=== PATIENT | female | born 1935 | race Caucasian/White ===

== ENCOUNTER 2018-01-07 05:38 | Observation (INO) ==
[2018-01-07] MEDS ORDERED: Metoprolol Tartrate 25 MG Tablet PO ONE (06:03)
[2018-01-07] MEDS ORDERED: Chlorhexidine Gluconate 2% 1 Pack (2 Cloths) TOPICAL ONE (06:03)
[2018-01-07] MEDS ORDERED: Chlorhexidine 4% Topical 120 APPLIC/120 ML Bottle TOPICAL SCH (06:15)
[2018-01-07] MEDS ORDERED: Bupivacaine/Epinephrine Inj 0.25% 50 ML Vial ONE (06:57)
[2018-01-07] MEDS ORDERED: ceFAZolin 2 GM Premix Inj 2 GM/50 ML PIGGYBACK IV.SIG SCH (07:00)
[2018-01-07] MEDS ORDERED: Vancomycin Inj 1,000 MG in Sodium Chlor 0.9% Inj 250 ML IV.SIG SCH (07:00)
[2018-01-07] MEDS ORDERED: Sodium Chlor 0.9% Inj 500 ML IV.SIG SCH (07:00)
[2018-01-07] MEDS ORDERED: Lidocaine PF 1% Inj 5 ML Syringe INFILTRATN ONE (07:24)
[2018-01-07] MEDS ORDERED: Neostigmine Inj 5 MG/5 ML Syringe IV.PUSH ONE (07:24)
[2018-01-07] MEDS ORDERED: Glycopyrrolate Inj 1 MG/5 ML Syringe IV.PUSH ONE (07:24)
--- NOTE | 2018-01-07 12:26 | P.OP ---
- Preoperative Diagnosis (1) Spinal stenosis, cervical region Preoperative Diagnosis: Cervical spinal stenosis C3-4, C4-5, C5-6. Cervical radiculopathy. Cervical myelopathy. Degenerative disc disease, cervical spine. Herniated nucleus pulposus C4-5 and C5-6 Postoperative Diagnosis: Same Date of procedure: 01/07/18 Procedure: Anterior cervical discectomy and decompression with bilateral foraminotomies, C3 4. Anterior cervical discectomy decompression with bilateral foraminotomies, C4-5. Anterior cervical discectomy decompression and bilateral foraminotomies, C5-6. Left anterior iliac crest bone graft Surgeon: Timothy Story MD Sawyer Cork Slabs: NORRIS Philip Operation and Findings: EBL: 100 cc INDICATIONS: This patient is an 82-year-old female with significant myelopathic findings associated with above conditions. She is having loss of function and there is evidence of myelomalacia involving the upper cervical spinal cord. She presents for surgical treatment. NOTE: Quiana Philip PA-C was present for the entire surgical procedure as my certified surgical tech/first assistant. In my medical opinion her skill and care was necessary for proper management of this patient PROCEDURE: The patient was brought to the operating room and anesthetized in the supine position. This patient was positioned supine on the radiolucent table. All pressure points were protected in the anterior cervical spine and iliac crest was scrubbed with alcohol followed by Hibiclens followed by ChloraPrep. A timeout was done and antibiotics were given within 1 hour time window. Lateral radiographic images were used identifying the proper level. A left anterior incision was made along the line of the sternocleidomastoid medial border. The platysma was opened in line with the incision. Deep dissection continued in the interval between the carotid sheath and the esophagus. The longus-coli muscles were lifted on both sides and retractors were positioned allowing good exposure. Lateral radiographic images were used to identify the proper level. Everson style interosseous pins were placed at C3 and C4 allowing exposure to that level. The microscope was rolled into the field. A total discectomy was accomplished and posterior osteophytes were removed. The posterior longitudinal ligament and annulus was taken down. Bilateral foraminotomies were accomplished. The endplates were squared up anticipating later bone grafting. A blunt probe could be placed out each foramen without evidence of nerve root compromise. The C3 pin was placed down to C 5. An anterior exposure was accomplished. We performed a total discectomy with excision of the posterior annulus and posterior longitudinal ligament. Bilateral foraminotomies were accomplished. Osteophytes were removed. The endplates were squared up anticipating later bone grafting. A blunt probe could be placed out each foramen without evidence of nerve root compromise. The C4 pin was placed down to C6. An anterior exposure was accomplished. We performed a total discectomy with excision of the posterior annulus and posterior longitudinal ligament. Bilateral foraminotomies were accomplished. Osteophytes were removed. The endplates were squared up anticipating later bone grafting. A blunt probe could be placed out each foramen without evidence of nerve root compromise. The left iliac crest was approached. A small stab incision was made allowing percutaneous access to the anterior iliac crest. Multiple cores of cancellous bone were harvested and taken to the back table to be used for later bone grafting. The wound was irrigated anesthetized and closed with 4-0 Vicryl followed by Dermabond. The case was turned over to Dr. Luis Story for fusion and instrumentation per his dictation. FINDINGS: There was evidence of a significant osteophyte disc complex with significant ossification involving the posterior longitudinal ligament at the C3 -4 level. There was a large extruded central disc herniation at C4-5 and C5-6. The final decompression appeared to be very satisfactory. There was no complication that was appreciated. NOTE: This surgery was performed in 2 parts. The first part was the neurosurgical decompression performed under the variable power stereo microscope by the undersigned in addition to the bone graft. The second portion of the surgery will be performed by the orthopedic spine component by co -surgeon, Dr. Luis Story for the anterior fusion with interbody cage and anterior plate. The skill of 2 surgeons was necessary to perform distinct separate procedural services as dictated above and dictated in the following operative note by Dr. Luis Story.
[2018-01-07] MEDS ORDERED: Bisacodyl 10 MG Supp RECTAL PRN (12:36)
[2018-01-07] MEDS ORDERED: Morphine Inj 4 MG/ML Vial IV.PUSH PRN (12:36)
--- NOTE | 2018-01-07 12:45 | XR ---
EXAM DATE: 01/07/2018 12:00 AM EDT AGE/SEX: 82 years / Female INDICATIONS: Neck pain, anterior cervical fusion C3-4, C4-5, C5-6. CLINICAL DATA: This is the patient's initial encounter. Patient reports that signs and symptoms have been present for 1 day and indicates a pain score of Nonresponsive. MEDICAL/SURGICAL HISTORY: Non-responsive. Non-responsive. COMPARISON: No prior exams available for comparison. FINDINGS: The examination demonstrates a 4 level anterior cervical fusion this appears to extend from C3 down t o C6 though numbering is difficult on this intraoperative examination. The hardware appears very well positioned. CONCLUSION: Anterior cervical fusion which appears to extend from C3 to C6. Electronically signed by: Oleksandr Goodrich MD 01/07/2018 12:44 PM EDT
[2018-01-07] MEDS ORDERED: Post-op Orders (for Pharmacy) OTHER STA (12:51)
[2018-01-07] MEDS ORDERED: fentaNYL Citrate Inj 100 MCG/2 ML Ampul ONE ×2 (12:53→12:54)
[2018-01-07] MEDS ORDERED: *morphine SULFATE 4 MG/ML PERIprocedure ONLY ONE ×2 (13:06→13:20)
--- NOTE | 2018-01-07 14:14 | MP ---
cc: Luis Story MD, David J MD DATE OF OPERATION: 01/07/2018 PREOPERATIVE DIAGNOSES: 1. C3-4 osteophyte disk complex, herniated nucleus pulposus, spinal stenosis, spinal cord compression, possible spinal cord edema. 2. C4-5 osteophyte disk complex, spondylolisthesis, spinal cord compression, severe spinal stenosis, herniated nucleus pulposus, spinal cord edema with spinal cord compression. 3. C5-C6 osteophyte disk complex, herniated nucleus pulposus, severe spinal stenosis, spinal cord compression. 4. C3-C7 degenerative osteoarthritis. 5. Cervical myelopathy with left-sided cervical radiculitis and left upper extremity weakness. POSTOPERATIVE DIAGNOSES: 1. C3-4 osteophyte disk complex, herniated nucleus pulposus, spinal stenosis, spinal cord compression, possible spinal cord edema. 2. C4-5 osteophyte disk complex, spondylolisthesis, spinal cord compression, severe spinal stenosis, herniated nucleus pulposus, spinal cord edema with spinal cord compression. 3. C5-C6 osteophyte disk complex, herniated nucleus pulposus, severe spinal stenosis, spinal cord compression. 4. C3-C7 degenerative osteoarthritis. 5. Cervical myelopathy with left-sided cervical radiculitis and left upper extremity weakness. PROCEDURE PERFORMED: C3-4, C4-5, C5-6 anterior interbody fusion; C3-4, C4-5, C5-6 anterior cervical cage; C3-C6 Rhausler anterior spinal instrumentation SURGEON: Luis Story MD [employer] FOOTBALLER: Jessica Taveras PA-C. ESTIMATED BLOOD LOSS: 100 mL for entire case. DRAINS: One. COMPLICATIONS: None. PLAN: Activities per orders. Dr. Timothy Story and myself were co-surgeons. Dr. Timothy Story performed the narrow decompression portion of the procedure. This is a C3-4, C4-5, C5-6 anterior cervical discectomy anterior decompression foraminotomies using microscope and a left anterior iliac crest bone grafting. I was not present for his portion of the procedure, I performed the above-mentioned surgical procedure. My assistant surveyor, Adamaris Taveras PA-C, was present for my portion of the case. She was medically necessary for the entire case because of the complexity of the case and to facilitate the performance of the procedure. The AIRFIELD MANAGER at the back table was not of the skill set for this case to manipulate the instruments, e.g., soft tissue retractors, trial implants, and permanent implants. PROCEDURE DETAILS: The patient was brought in the operating room under satisfactory general endotracheal anesthesia. Dr. Timothy Story performed his portion of the procedure. I was not present for his portion of the procedure. The endplates at C5-C6 were prepared for fusion. The hyaline cartilage endplate removed using angled curettes and burs. A 610 x 12 ACC cage was placed in the interspace. The anterior iliac crest autogenous bone graft was used under fluoroscopic guidance for interbody fusion. The endplates at C4-C5 were prepared for fusion. They were removed using curettes and burs. A 510 x 12 a ACC cage was placed in the interspace. Anterior iliac crest bone graft was used under fluoroscopic guidance for the interbody fusion. A C3-4 anterior iliac crest interbody fusion was prepared. The cartilage endplate was removed with curettes and burs. A 610 x 12 ACC cage was placed in the interspace. Fluoroscopic guidance and interbody fusion was used. Interbody fusion of anterior iliac crest bone graft was used for interbody fusion. Anterior osteophytes were removed using multiple different types of rongeurs and burs. A 57 mm Rhausler plate was contoured for appropriate cervical lordosis. Two transfixion screws were used and under fluoroscopic guidance the patient was found to have satisfactory positioning of the plate. Both AP and lateral plane. With this, preparation for anterior spinal sedation was made. Two screws were used interbody of C3, C4, C5, and C6. Each of the screws were drilled and each of the screws were 14 mm in length, 4.0 mm outer diameter fixed angle screws. Each screw was appropriately screwed into the vertebral bodies with appropriate locking of the screw head to the plate. All done under fluoroscopic guidance. The wound was irrigated with copious amounts of sterile saline antibiotic solution. The wound itself was dry. It was closed over a 10-Cymraes round Markell drain. Intraoperative fluoroscopy confirmed satisfactory position of the bone graft at C3-C4, C4-5, C5-6, satisfactory position anterior cervical cages at C3-4, C4-5, C5-6, satisfactory position of anterior spinal instrumentation from C3 to C6. The wound was irrigated with copious amounts of sterile saline. The wound itself was dry, closed in a routine layers using multiple 3-0 Vicryl suture. Skin was approximated with running subcuticular 4-0 Vicryl suture with sterile dressings. The Dermabond placed over the incisions. Sterile dressings were applied. The patient was placed in a [place] cervical orthosis. The patient tolerated the procedure well and brought to the recovery room in stable and satisfactory condition. MD ROBERT Owens/ch/yasmin , 12:39 PM , 12:55 PM SEAN
[2018-01-07] MEDS ORDERED: Sertraline 50 MG Tablet PO SCH (21:00)
[2018-01-07] MEDS ORDERED: Lisinopril 10 MG Tablet PO SCH (21:00)
[2018-01-07] MEDS ORDERED: amLODIPine 5 MG Tablet PO SCH (21:00)
[2018-01-07] MEDS: Senna/Docusate Sodium 8.6/50 MG Tablet PO SCH (23:10)
[2018-01-07] MEDS: Brimonidine 0.15% Opth Drops 5 ML Bottle EACH EYE SCH (23:10)
--- NOTE | 2018-01-08 06:53 | P.PNOP ---
Subjective Interval history: pt doing well, she does have post operative neck pain arms feel good, fingers still numb no other complaints Physical Exam Vital signs: Vital Signs 01/07/18 12:47 01/07/18 13:00 01/07/18 13:15 Temperature 96.4 F L Pulse Rate 99 H 56 L 61 Respiratory Rate 17 16 16 Blood Pressure 136/62 142/62 H 141/69 H Pulse Oximetry 97 99 99 01/07/18 13:30 01/07/18 13:45 01/07/18 14:15 Temperature Pulse Rate 61 54 L 66 Respiratory Rate 16 16 16 Blood Pressure 166/65 H 132/60 140/66 Pulse Oximetry 99 99 99 01/07/18 14:45 01/07/18 15:00 01/07/18 15:29 Temperature 97.4 F L Pulse Rate 53 L 55 L 54 L Respiratory Rate 15 15 16 Blood Pressure 124/58 L 139/65 144/62 H Pulse Oximetry 99 99 99 01/07/18 16:00 01/07/18 20:00 01/07/18 20:25 Temperature 97.4 F L 97.3 F L Pulse Rate 86 82 Respiratory Rate 17 16 Blood Pressure 163/72 H 143/71 H Pulse Oximetry 97 99 98 01/08/18 00:00 01/08/18 04:00 Temperature 97.7 F 97.5 F L Pulse Rate 66 75 Respiratory Rate 16 16 Blood Pressure 155/77 H 150/69 H Pulse Oximetry 98 99 Intake & Output 01/07/18 01/07/18 01/08/18 06:59 18:59 06:59 Intake Total 2840 / 2840 100 / 100 Output Total 850 / 850 1560 / 1560 Balance 1989 / 1989 -1460 / -1460 Weight 56.9 kg 57.6 kg Intake: IV 100 / 100 100 / 100 Ancef Inj 1,000 MG In NS Inj 100 / 100 100 / 100 100 ML @ 200 mls/hr IV.SIG Q6H [facility] Rx#:[id number] Oral 240 / 240 Anesthesia Amount 2500 / 2500 Output: Estimated Blood Loss 150 / 150 Urine Amount (Catheter) 650 / 650 1500 / 1500 Indwelling Urethral Catheter 650 / 650 1500 / 1500 Wound Drainage 50 / 50 60 / 60 # 1 Anterior Neck 50 / 50 60 / 60 Other: Date of Last Bowel Movement 01/06/18 Weight On Admission 56.9 kg Narrative: also seen by Dr. Luis Maria collar in place cervical dressing dry motor is +5/5 to UE - Urinary Catheter Management Indwelling Urethral Catheter Cath placed during this visit: yes Reason for continuing: Hourly intake/output Insertion date: 01/07/18 Insertion time: 07:50 Results - Imaging Impressions Cervical Spine X-Ray 01/07/18 00:00 CONCLUSION: Anterior cervical fusion which appears to extend from C3 to C6. Assessment and Plan - Assessment and Plan POD #1 s/p C 3-6 ACDF [place] collar x 8 weeks [place] rx being escribed to pharmacy discharge home, orthopedically stable
[2018-01-08] MEDS: Brimonidine 0.15% Opth Drops 5 ML Bottle EACH EYE SCH (08:17)
[2018-01-08 08:28] VITALS: RESP 18; O2SAT 92
[2018-01-08] MEDS ORDERED: Brimonidine 0.15% Opth Drops 5 ML Bottle EACH EYE SCH (09:00)
[2018-01-08 11:46] VITALS: BP 114/55; PULSE 65; TEMP 98.5
[2018-01-08] MEDS: Senna/Docusate Sodium 8.6/50 MG Tablet PO SCH (20:00)
== END 2018-01-08 12:44 | disposition home or self-care (01) ==
LOC: INTOOBSV 05:38 → HSDI 05:38 → N06 15:41
PROVIDERS: ADMIT Orthopaedic Surgery Orthopaedic Surgery of the Spine; ATTEND Orthopaedic Surgery Orthopaedic Surgery of the Spine

== ENCOUNTER 2018-01-21 05:58 | Inpatient (IN) ==
[2018-01-21] MEDS ORDERED: Metoprolol Tartrate 25 MG Tablet PO ONE (06:20)
[2018-01-21] MEDS ORDERED: Chlorhexidine Gluconate 2% 1 Pack (2 Cloths) TOPICAL ONE (06:20)
[2018-01-21] MEDS ORDERED: Chlorhexidine 4% Topical 120 APPLIC/120 ML Bottle TOPICAL SCH (06:30)
[2018-01-21] MEDS ORDERED: Sodium Chlor 0.9% Inj 500 ML IV.SIG SCH (07:00)
[2018-01-21] MEDS ORDERED: Vancomycin Inj 1,000 MG in Sodium Chlor 0.9% Inj 250 ML IV.SIG SCH (07:00)
[2018-01-21] MEDS ORDERED: ceFAZolin 2 GM Premix Inj 2 GM/50 ML PIGGYBACK IV.SIG SCH (07:00)
[2018-01-21] MEDS ORDERED: Bupivacaine/Epinephrine Inj 0.25% 50 ML Vial ONE (08:04)
[2018-01-21] MEDS ORDERED: Gelatin Size 100 Topical Foam ONE (08:05)
[2018-01-21] MEDS ORDERED: Propofol Inj 500 MG/50 ML Vial ONE (08:17)
[2018-01-21] MEDS ORDERED: fentaNYL Citrate Inj 250 MCG/5 ML Ampul ONE (08:18)
[2018-01-21] MEDS ORDERED: Famotidine PF Inj 20 MG/2 ML Vial ONE (08:18)
[2018-01-21] MEDS ORDERED: fentaNYL Citrate Inj 100 MCG/2 ML Ampul ONE (08:18)
[2018-01-21] MEDS ORDERED: Glycopyrrolate Inj 1 MG/5 ML Syringe IV.PUSH ONE (08:31)
[2018-01-21] MEDS ORDERED: Neostigmine Inj 5 MG/5 ML Syringe IV.PUSH ONE (08:31)
[2018-01-21] MEDS ORDERED: Lidocaine PF 1% Inj 5 ML Syringe OTHER ONE (08:31)
[2018-01-21] MEDS ORDERED: Bisacodyl 10 MG Supp RECTAL PRN (10:33)
[2018-01-21] MEDS ORDERED: Post-op Orders (for Pharmacy) OTHER STA (10:33)
[2018-01-21] MEDS ORDERED: Temazepam 15 MG Capsule PO PRN (10:33)
--- NOTE | 2018-01-21 10:47 | P.OP ---
- Preoperative Diagnosis (1) Spinal stenosis, cervical region Preoperative Diagnosis: Status post ACDF C3-4, C4-5, C5-6. Cervical radiculopathy. Cervical myelopathy. Postoperative Diagnosis: Status post ACDF C3-4, C4-5, C5-6. Cervical radiculopathy. Cervical myelopathy. Procedure: Posterior cervical fusion C3-4, C4-5, C5-6. Left posterior iliac crest bone graft. Placement of intra-facet cages with segmental instrumentation, C3-4 bilateral, C4-5 bilateral, C5-6 bilateral Anesthesia: GETA Surgeon: Timothy Story MD Home Assessment Nurse: NORRIS Philip Operation and Findings: EBL: 50 cc INDICATIONS: This patient is an 82-year-old female with significant neck and arm pain and evidence of cervical myelopathy. She is approximately 2 weeks status post ACDF with interbody cages and anterior plate at C3-4, C4-5 and C5- 6. She now presents for staged posterior cervical fusion NOTE: Quiana Philip PA-C was present for the entire surgical procedure as my engineer first assistant. In my medical opinion her skill and care was necessary for proper management of this patient PROCEDURE: The patient was brought the operating room and anesthetized in the supine position. The patient was positioned prone on a Eliseo table. The arms were placed out along the side and taping was utilized to ensure adequate visualization. AP and lateral radiographic images were used identifying the proper level and allowing excellent exposure for purpose of the cervical fusion. A timeout was done and antibiotics were given within a routine time window. A small incision was made over the left iliac crest bone graft. A series of cores of bone graft were harvested with a special percutaneous device. The bone graft was taken to the back table to be mixed with stem cell bone graft for the later part of the case Using AP and lateral radiographs, skin markings were made. On the right side and 18-gauge spinal needle was placed down to the proper level. The left side a separate incision was made and we used the [employer] system. Exposure was afforded down to the proper level. Under visualization, a chisel was placed down to the C C5-6 level. This was confirmed under radiographs to be in proper position. Exposure was satisfactory. This is placed down into the facet joint at that level. A decorticating device was utilized decorticating the bone of the facet above and below. A retractor was placed down over the access chisel allowing exposure to the joint and exposure to the articular cartilage. A drilling system was utilized removing cartilage and bone this region followed by a rasp. On the back table demineralized bone matrix was mixed with Nucel stem cells and a autogenous bone graft. A combination of both these were then paced placed into proper cages. The cages were impacted into the proper position and checked again under AP and lateral fluoroscopic images. A transfixation screw was placed into the cage having excellent fixation into the facet joint of the level above. The back side of the cage was filled with additional bone graft which was tamped into position. The retractor was removed. On the right side a separate incision was made. Using the likewise sequence of access to the same level, an incision was made allowing visualization for placement of an access chisel which was placed into the joint followed by decortication with excellent visualization. A final retractor was positioned holding this while we were able to drill and use the rasp. The joint was prepared and we created a space for the cage. The cage was filled with bone graft and impacted in proper position. A transfixation screw was fixated at that time and alignment was satisfactory. Additional bone graft placed along the posterior aspect of the cage and the facet joint and was tamped into position.. At the C4-5 level, this was repeated in the likewise fashion. A decorticating device was utilized decorticating the bone of the facet above and below. A retractor was placed down over the access chisel allowing exposure to the joint and exposure to the articular cartilage. A drilling system was utilized removing cartilage and bone this region followed by a rasp. On the back table demineralized bone matrix was mixed with Nucel stem cells and a autogenous bone graft. A combination of both these were then paced placed into proper cages. The cages were impacted into the proper position and checked again under AP and lateral fluoroscopic images. A transfixation screw was placed into the cage having excellent fixation into the facet joint of the level above. The back side of the cage was filled with additional bone graft which was tamped into position. The retractor was removed. On the right side this was repeated in the likewise fashion. Using the likewise sequence of access to the same level. An access chisel was placed into the joint followed by decortication with excellent visualization. A final retractor was positioned holding this while we were able to drill and use the rasp. The joint was prepared and we created a space for the cage. The cage was filled with bone graft and impacted in proper position. A transfixation screw was fixated at that time and alignment was satisfactory. Additional bone graft placed along the posterior aspect of the cage and the facet joint and was tamped into position. At the C3-4 level, this was repeated in the likewise fashion. A decorticating device was utilized decorticating the bone of the facet above and below. A retractor was placed down over the access chisel allowing exposure to the joint and exposure to the articular cartilage. A drilling system was utilized removing cartilage and bone this region followed by a rasp. On the back table demineralized bone matrix was mixed with Nucel stem cells and a autogenous bone graft. A combination of both these were then paced placed into proper cages. The cages were impacted into the proper position and checked again under AP and lateral fluoroscopic images. A transfixation screw was placed into the cage having excellent fixation into the facet joint of the level above. The back side of the cage was filled with additional bone graft which was tamped into position. The retractor was removed. On the right side this was repeated in the likewise fashion. Using the likewise sequence of access to the same level. An access chisel was placed into the joint followed by decortication with excellent visualization. A final retractor was positioned holding this while we were able to drill and use the rasp. The joint was prepared and we created a space for the cage. The cage was filled with bone graft and impacted in proper position. A transfixation screw was fixated at that time and alignment was satisfactory. Additional bone graft placed along the posterior aspect of the cage and the facet joint and was tamped into position. Intraoperative x-rays in AP and lateral plane showed excellent positioning and stabilization . The wound was irrigated copiously. Hemostasis was controlled. The fascia was closed with interrupted Vicryl suture skin and subcutaneous tissue with 3-0 Vicryl suture followed by Dermabond. The sponge count needle counts and sponge counts were all correct. The patient tolerated the procedure well as taken to the recovery room in satisfactory condition. FINDINGS: There was severe facet arthrosis bilaterally. Cage position appeared to be very satisfactory. There was no complication that was appreciated.
[2018-01-21] MEDS ORDERED: *morphine SULFATE 4 MG/ML PERIprocedure ONLY ONE (11:04)
[2018-01-21] MEDS: Morphine Inj 4 MG/ML Vial IV.PUSH PRN ×2 (12:14→21:05)
--- NOTE | 2018-01-21 12:25 | XR ---
EXAM DATE: 01/21/2018 12:00 AM EDT AGE/SEX: 82 years / Female INDICATIONS: Posterior cervical fusion. C3-6. CLINICAL DATA: This is the patient's initial encounter. Patient reports that signs and symptoms have been present for 1 day and indicates a pain score of Nonresponsive. MEDICAL/SURGICAL HISTORY: Non-responsive. Non-responsive. [place] [facility] [place] [facility] 01/07[place]2018. . CONCLUSION: Fluoroscopic images during placement of plate and screws C3-C6. There is also metallic densities denita g the facets bilaterally. Electronically signed by: Nabeel Glez MD 01/21/2018 12:24 PM EDT
[2018-01-21] MEDS ORDERED: amLODIPine 5 MG Tablet PO SCH (21:00)
[2018-01-21] MEDS ORDERED: Brimonidine 0.15% Opth Drops 5 ML Bottle EACH EYE SCH (21:00)
[2018-01-21] MEDS ORDERED: Lisinopril 10 MG Tablet PO SCH (21:00)
[2018-01-21] MEDS ORDERED: Sertraline 50 MG Tablet PO SCH (21:00)
[2018-01-21] MEDS: Multivitamin/Minerals Therapeutic Tablet PO SCH (21:06)
[2018-01-21] MEDS: Senna/Docusate Sodium 8.6/50 MG Tablet PO SCH (21:07)
--- NOTE | 2018-01-22 07:39 | P.PNOP ---
Subjective Interval history: Doing well. Ambulating without difficulty Physical Exam Vital signs: Vital Signs 01/21/18 10:50 01/21/18 11:00 01/21/18 11:15 Temperature 97.6 F Pulse Rate 89 70 58 L Respiratory Rate 16 14 14 Blood Pressure 179/81 H 162/74 H 148/68 H Pulse Oximetry 97 96 94 L 01/21/18 11:30 01/21/18 12:00 01/21/18 15:41 Temperature 97.6 F 97.4 F L 98.1 F Pulse Rate 59 L 59 L 73 Respiratory Rate 14 16 16 Blood Pressure 143/67 H 154/70 H 162/70 H Pulse Oximetry 95 95 92 L 01/21/18 19:02 01/21/18 20:00 01/21/18 21:13 Temperature 98.2 F Pulse Rate 67 Respiratory Rate 18 18 18 Blood Pressure 181/79 H Pulse Oximetry 94 L 01/22/18 00:00 01/22/18 00:59 01/22/18 04:00 Temperature 97.6 F 97.5 F L Pulse Rate 79 80 Respiratory Rate 17 18 18 Blood Pressure 176/75 H 130/61 Pulse Oximetry 96 95 Intake & Output 01/21/18 01/22/18 01/22/18 18:59 06:59 18:59 Intake Total 2380 / 2380 1200 / 1200 Output Total 5 / 5 Balance 2375 / 2375 1200 / 1200 Weight 57.2 kg Intake: IV 1400 / 1400 1200 / 1200 LR 1000 mL Inj 1,000 ML @ 80 1000 / 1000 mls/hr IV.CONT .[id number] [facility] Rx# :[id number] LR 1000 mL Inj 1,000 ML @ 30 1000 / 1000 mls/hr IV.SIG .Q24H [facility] Rx#: [id number] Vancomycin Inj 1,000 MG In NS 250 / 250 Inj 250 ML @ 250 mls/hr IV.SIG [employer] [facility] Rx#:[id number] Ancef 2 GM Premix Inj 2 gm In 50 / 50 50 ml @ 100 mls/hr IV.SIG [employer]OP[employer] [facility] Rx#:[id number] Ancef Inj 1,000 MG In NS Inj 100 / 100 200 / 200 100 ML @ 200 mls/hr IV.SIG Q6H [facility] Rx#:[id number] Oral 480 / 480 Anesthesia Amount 500 / 500 Output: Estimated Blood Loss 5 / 5 Other: # Voids 2 3 Date of Last Bowel Movement 01/19/18 01/20/18 Narrative: Ambulating. No new arm pain. Motor examination the same. Dressing dry Results - Imaging Impressions Cervical Spine X-Ray 01/21/18 00:00 CONCLUSION: Fluoroscopic images during placement of plate and screws C3-C6. There is also metallic densities along the facets bilaterally. Assessment and Plan - Assessment and Plan Status post ACDF/posterior cervical fusion: POD #1. PLAN: Discharge to home. Dry dressing change. [place] for pain. Follow-up in 2 weeks. Brace full-time.
[2018-01-22] MEDS ORDERED: Brimonidine 0.15% Opth Drops 5 ML Bottle EACH EYE SCH (09:00)
[2018-01-22] MEDS: Multivitamin/Minerals Therapeutic Tablet PO SCH (09:27)
[2018-01-22] MEDS: Senna/Docusate Sodium 8.6/50 MG Tablet PO SCH (09:27)
[2018-01-22 10:23] VITALS: BP 148/87; PULSE 77; RESP 16; TEMP 97.7; O2SAT 93
--- NOTE | 2018-01-22 14:29 | P.DS ---
Date of admission: 01/21/18 05:58 Primary care physician: No Primary Care Physician Attending physician on discharge: Timothy Story Anticipated date of discharge: 01/22/18 Brief History from admission: Ms. Harrison has had ongoing neck and radiating arm pain and numbness for 5-6 months. She was seeking treatment for her lumbar spine at the same time. She was referred to neurology who ordered MRI cervical spine. This showed stenosis C34, C45 and severe stenosis with cord compression C56. A Cat scan was ordered. She was placed in a cervical collar. Upon review of the study it was recommended she undergo staged anterior and posterior cervical fusion. She completed her anterior procedure 01/07/18 and now presents for the posterior portion. DS: Diagnosis - Discharge Diagnosis (1) Spinal stenosis, cervical region Status: Acute DS: Medications - Discharge Medications Prescriptions: hydrocodone-acetaminophen 1 tab PO Q4H PRN #42 tab PRN Reason: Acute Pain DS: Summary Hospital Course: Surgical treatment was performed on the day of admission without complication. He recovered well in PACU and was transferred to the orthopaedic floor. Pain was controlled with IV and oral medications. She was compliant with her cervical collar and all precautions. After 1 day she was found to be stable and discharged home. 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 She was given a prescription for [place]. - Time Spent with Patient Total time spent providing and/or coordinating discharge services: Greater than 30 minutes - Quality: VTE Deep Vein Thrombosis/Pulmonary Embolism Present on Admission: No Exam Vital signs: Vital Signs 01/21/18 15:41 01/21/18 19:02 01/21/18 20:00 Temperature 98.1 F 98.2 F Pulse Rate 73 67 Respiratory Rate 16 18 18 Blood Pressure 162/70 H 181/79 H Pulse Oximetry 92 L 94 L 01/21/18 21:13 01/22/18 00:00 01/22/18 00:59 Temperature 97.6 F Pulse Rate 79 Respiratory Rate 18 17 18 Blood Pressure 176/75 H Pulse Oximetry 96 01/22/18 04:00 01/22/18 08:00 Temperature 97.5 F L 97.7 F Pulse Rate 80 77 Respiratory Rate 18 16 Blood Pressure 130/61 148/87 H Pulse Oximetry 95 93 L Intake & Output 01/21/18 01/22/18 01/22/18 18:59 06:59 18:59 Intake Total 2380 / 2380 1200 / 1200 Output Total 5 / 5 Balance 2375 / 2375 1200 / 1200 Weight 57.2 kg Intake: IV 1400 / 1400 1200 / 1200 LR 1000 mL Inj 1,000 ML @ 80 1000 / 1000 mls/hr IV.CONT .[id number] [facility] Rx# :[id number] LR 1000 mL Inj 1,000 ML @ 30 1000 / 1000 mls/hr IV.SIG .Q24H [facility] Rx#: [id number] Vancomycin Inj 1,000 MG In NS 250 / 250 Inj 250 ML @ 250 mls/hr IV.SIG CONICAL MIXER [facility] Rx#:[id number] Ancef 2 GM Premix Inj 2 gm In 50 / 50 50 ml @ 100 mls/hr IV.SIG CONICAL MIXER [facility] Rx#:[id number] Ancef Inj 1,000 MG In NS Inj 100 / 100 200 / 200 100 ML @ 200 mls/hr IV.SIG Q6H [facility] Rx#:[id number] Oral 480 / 480 Anesthesia Amount 500 / 500 Output: Estimated Blood Loss 5 / 5 Other: # Voids 2 3 Date of Last Bowel Movement 01/19/18 01/20/18 01/20/18 - Constitutional no acute distress Results Procedures completed during hospitalization: Posterior cervical fusion C34, C45, C56, DTRAX instrumentation, bone graft. - Impressions ITS Impressions Cervical Spine X-Ray 01/21/18 00:00 CONCLUSION: Fluoroscopic images during placement of plate and screws C3-C6. There is also metallic densities along the facets bilaterally. Discharge Plan - Discharge Disposition Patient Disposition: 01 Discharge Home - Discharge Condition Condition: Good - Discharge Order Discharge Orders: Discharge Order (Routine); Ordered 01/21/18 Ordered By: Timothy Story - Physicians Team Primary Care Provider: Primary Care Roma Mckeon Attending Provider: Timothy Story - Rxs /Orders / Referrals /Forms Prescriptions: New hydrocodone-acetaminophen 7.5-325 mg Tablet 1 tab PO Q4H PRN (Reason: Acute Pain) Qty: 42 RF: 0 Continue amlodipine 2.5 mg Tablet 2.5 mg PO HS aspirin [Aspirin Low Dose] 81 mg Tablet,Delayed Release (Dr/Ec) 81 mg PO DAILY brimonidine [Alphagan P] 0.15 % Drops 1 drp OPHTHALMIC (EYE) BID brimonidine [Alphagan P] 0.15 % Drops 1 drp OPHTHALMIC (EYE) DAILY hydrocodone-acetaminophen 5-325 mg Tablet 1 - 2 tab PO Q6H PRN (Reason: pain) 40 Days RF: 0 lisinopril 10 mg Tablet 10 mg PO HS sertraline 50 mg Tablet 50 mg PO HS simvastatin 20 mg Tablet 20 mg PO QPM Referrals: Primary Care Roma Mckeon [Primary Care Provider] - See Instructions - Discharge Instructions Patient Printed Instructions: Hydrocodone/Acetaminophen (By mouth), Laminectomy (DC) - Post Discharge Care Plan Care Plan Goals: Your Health Problems: Cervical spinal stenosis Recent surgery: Anterior cervical fusion (01/07/18), Posterior cervical fusion 01/21/18 Goals to Promote Your Health: * To prevent worsening of your condition * To maintain your health at the optimal level Directions to Meet Your Goals: * Take your medications as prescribed * Follow your dietary instruction * Follow activity as directed * Keep your appointments as scheduled * Take your immunizations and boosters as scheduled * If your symptoms worsen call your PCP * If no PCP go to Urgent Care or Emergency Room Smoking is dangerous to your health. Avoid second hand smoke. You may reach the 24-hour crisis hotline for domestic abuse at .
== END 2018-01-22 10:56 | disposition home or self-care (01) ==
LOC: HSDI 05:58 → N06 11:52
PROVIDERS: ADMIT Orthopaedic Surgery Orthopaedic Surgery of the Spine; ATTEND Orthopaedic Surgery Orthopaedic Surgery of the Spine